=== PATIENT | female | born 1980 | race Asian ===

== ENCOUNTER 2017-03-23 11:41 | Emergency (ER) | payer BC, OTHER ==
[~2017-03-23] VITALS: Ht 157.5 cm; Wt 62.0 kg
[~2017-03-23 11:41] MED LIST: FERR1TAB23 PO; OMEG10007 PO; POLY150C4; PRENTAB26 PO
[2017-03-23 11:44] VITALS: TEMP 36.8; Ht 157.5 cm; Wt 62.0 kg
[2017-03-23 13:01] LABS: BASO % 0.6 %; BASO ABS # 0.04 K/uL (0-0.2); EOS % 2.3 %; EOS ABS # 0.15 K/uL (0-0.5); HEMATOCRIT 36.6 % (37-47); HEMOGLOBIN 12.5 g/dL (12.0-16.0); IG# 0.01 K/uL (0.00-0.02); LYMPH % 30.1 %; LYMPH ABS # 1.94 K/uL (1.2-3.4); MEAN CELL VOLUME 81.5 fL (80-100); MEAN CORPUSCULAR HEMOGLOBIN 27.8 pg (25-34); MEAN CORPUSCULAR HGB CONC 34.2 g/dl (32-36); MEAN PLATELET VOLUME 10.3 fL (7.4-10.4); MONO % 7.3 %; MONO ABS # 0.47 K/uL (0.11-0.59); NEUT % 59.5 %; NEUT ABS # 3.84 K/uL (1.4-6.5); PLATELET COUNT 317 K/uL (130-400); RED CELL DISTRIBUTION WIDTH CV 13.8 % (11.5-14.5); WHITE BLOOD COUNT 6.45 K/uL (4.8-10.8)
--- NOTE | 2017-03-23 13:11 | DIAGNOSTIC IMAGING REPORT ---
CHEST 2 VIEWS ROUTINE CLINICAL HISTORY: 37 years-old Female presenting with EVALUATE RESPIRATORY DISTRESS.DYSPNEA, shortness of breath, chest pain, cough for 2 months. TECHNIQUE: PA and lateral views of the chest were obtained. COMPARISON: None. FINDINGS: Cardiomediastinal silhouette normal. Lungs and pleural spaces clear. Osseous structures normal. Upper abdomen normal. IMPRESSION: 1. No acute cardiopulmonary disease. Electronically signed by: Dax Bermeo M.D. 03/23/2017 1:10 PM Dictated Date/Time: 03/23/2017 1:09 PM
[2017-03-23 13:20] LABS: ALBUMIN 3.6 gm/dl (3.4-5.0); ALT/SGPT 17 U/L (12-78); AST/SGOT 12 U/L (15-37); BLOOD UREA NITROGEN 10 mg/dl (7-18); CALCIUM 8.6 mg/dl (8.5-10.1); CARBON DIOXIDE 26 mmol/L (21-32); GLUCOSE 87 mg/dl (70-99); POTASSIUM 3.6 mmol/L (3.5-5.1); SODIUM 136 mmol/L (136-145)
[2017-03-23 13:25] LABS: ALKALINE PHOSPHATASE 88 U/L (45-117); CKMB 0.6 ng/ml (0.5-3.6); TOTAL PROTEIN 7.5 gm/dl (6.4-8.2)
[2017-03-23] MEDS ORDERED: CHLO1LIQ21 PO (13:43)
[2017-03-23 14:05] VITALS: BP 102/54; PULSE 72; O2SAT 98
--- NOTE | 2017-03-23 14:39 | EMERGENCY ROOM VISIT NOTE ---
History Report prepared by Erasmo: Praveen Aquino Under the Supervision of: Dr. Yousif Akers D.O. First contact with patient: 11:52 Chief Complaint: SHORTNESS OF BREATH Stated Complaint: DIFFICULTY BREATHING,LOTS OF CHEST PAIN Nursing Triage Summary: pt to the ED with worsening SOB and chest pain over the past several months, she was tx for bronchitis History of Present Illness The patient is a 37 year old female who presents to the Emergency Room with complaints of persistent shortness of breath since last night [employer]. She notes that last night she had severe shortness of breath and chest pain. She notes that she had similar shortness of breath two weeks ago. She notes the chest pain is associated with her coughing. She notes that she has been going through increased stress in her life due to work and family issues. She notes consistent difficulty sleeping at night. She has a recent history of bronchitis two months ago. She reports that her daughter goes to daycare and thinks she may have contracted something though she is unsure. She notes that she has seen her PCP twice in the last two months for similar symptoms. She notes that she did not have any tests done, though was prescribed antibiotics. She states that they seemed to help her cough, though the symptoms are recurring. She denies taking any daily medications. She notes ill-formed L4 vertebrae. She denies any underlying medical problems. She denies any leg pain, leg swelling, or recent travels. Source of History: patient Onset: last night [employer] Position: other (global ) Symptom Intensity: severe Quality: other (shortness of breath) Timing: other (persistent) Associated Symptoms: + cough, + chest pain Note: She notes increased stress and difficulty sleeping. She denies any leg pain, leg swelling, or recent travels. Review of Systems See HPI for pertinent positives & negatives. A total of 10 systems reviewed and were otherwise negative. Past Medical & Surgical Medical Problems: (1) Bronchitis (2) Normal labor (3) Vaginal bleeding Family History Hypertension Social History Smoking Status: Never Smoker Smokeless Tobacco Use: No Alcohol Use: none Drug Use: none Marital Status: Housing Status: lives with family Occupation Status: employed Current/Historical Medications Scheduled Chlorpheniramine-Dm (Robitussin Nighttime Coug 1-7.5 mg/5Ml), 20 ML PO UD Fish Oil ([place]ypress-3), 1 CAP PO QAM Multivit/Min/Iron/Fol Ac/Pren ( Vitamin), 1 TAB PO DAILY Allergies Coded Allergies: No Known Allergies (Unverified , 03/23/17) Physical Exam Vital Signs Date Time Temp Pulse Resp B/P (MAP) Pulse Ox O2 Delivery O2 Flow Rate FiO2 03/23/17 12:45 99 Room Air 03/23/17 11:44 36.8 105 18 105/57 98 Room Air Physical Exam CONSTITUTIONAL/VITAL SIGNS: Reviewed / noted above. GENERAL: Non-toxic in appearance. INTEGUMENTARY: Warm, dry, and [place]. HEAD: Normocephalic. EYES: without scleral icterus or trauma. ENT/OROPHARYNX: clear and moist. LYMPHADENOPATHY/NECK: Is supple without lymphadenopathy or meningismus. RESPIRATORY: Lungs clear and equal. CARDIOVASCULAR: Regular rate and rhythm. GI/ABDOMEN: Soft and nontender. No organomegaly or pulsatile mass. No rebound or guarding. Normal bowel sounds. EXTREMITIES: Warm and well perfused. BACK: No CVA tenderness. NEUROLOGICAL: Intact without focal deficits. PSYCHIATRIC: normal affect. MUSCULOSKELETAL: Normally developed with good muscle tone. Medical Decision & Procedures ER Provider Diagnostic Interpretation: Radiology results as stated below per my review and radiologist interpretation: CHEST 2 VIEWS ROUTINE CLINICAL HISTORY: 37 years-old Female presenting with EVALUATE RESPIRATORY DISTRESS.DYSPNEA, shortness of breath, chest pain, cough for 2 months. TECHNIQUE: PA and lateral views of the chest were obtained. COMPARISON: None. FINDINGS: Cardiomediastinal silhouette normal. Lungs and pleural spaces clear. Osseous structures normal. Upper abdomen normal. IMPRESSION: 1. No acute cardiopulmonary disease. Electronically signed by: Dax Bermeo M.D. 03/23/2017 1:10 PM Dictated Date/Time: 03/23/2017 1:09 PM Laboratory Results 03/23/17 12:45 Red Blood Count 4.49, Mean Corpuscular Volume 81.5, Mean Corpuscular Hemoglobin 27.8, Mean Corpuscular Hemoglobin Concent 34.2, Mean Platelet Volume 10.3, Neutrophils (%) (Auto) 59.5, Lymphocytes (%) (Auto) 30.1, Monocytes (%) (Auto) 7.3, Eosinophils (%) (Auto) 2.3, Basophils (%) (Auto) 0.6, Neutrophils # (Auto) 3.84, Lymphocytes # (Auto) 1.94, Monocytes # (Auto) 0.47, Eosinophils # (Auto) 0.15, Basophils # (Auto) 0.04 03/23/17 12:45 Test 03/23/17 12:45 White Blood Count 6.45 K/uL (4.8-10.8) Red Blood Count 4.49 M/uL (4.2-5.4) Hemoglobin 12.5 g/dL (12.0-16.0) Hematocrit 36.6 % (37-47) Mean Corpuscular Volume 81.5 fL (80-100) Mean Corpuscular Hemoglobin 27.8 pg (25-34) Mean Corpuscular Hemoglobin Concent 34.2 g/dl (32-36) Platelet Count 317 K/uL (130-400) Mean Platelet Volume 10.3 fL (7.4-10.4) Neutrophils (%) (Auto) 59.5 % Lymphocytes (%) (Auto) 30.1 % Monocytes (%) (Auto) 7.3 % Eosinophils (%) (Auto) 2.3 % Basophils (%) (Auto) 0.6 % Neutrophils # (Auto) 3.84 K/uL (1.4-6.5) Lymphocytes # (Auto) 1.94 K/uL (1.2-3.4) Monocytes # (Auto) 0.47 K/uL (0.11-0.59) Eosinophils # (Auto) 0.15 K/uL (0-0.5) Basophils # (Auto) 0.04 K/uL (0-0.2) RDW Standard Deviation 41.0 fL (36.4-46.3) RDW Coefficient of Variation 13.8 % (11.5-14.5) Immature Granulocyte % (Auto) 0.2 % Immature Granulocyte # (Auto) 0.01 K/uL (0.00-0.02) Anion Gap 5.0 mmol/L (3-11) Est Creatinine Clear Calc Drug Dose 96.2 ml/min Estimated GFR () 129.2 Estimated GFR (Non- 111.5 BUN/Creatinine Ratio 14.2 (10-20) Calcium Level 8.6 mg/dl (8.5-10.1) Total Bilirubin 0.4 mg/dl (0.2-1) Aspartate Amino Transf (AST/SGOT) 12 U/L (15-37) Alanine Aminotransferase (ALT/SGPT) 17 U/L (12-78) Alkaline Phosphatase 88 U/L (45-117) Total Creatine Kinase 63 U/L (26-192) Creatine Kinase MB 0.6 ng/ml (0.5-3.6) Creatine Kinase MB Ratio 1.0 (0-3.0) Troponin I < 0.015 ng/ml (0-0.045) Total Protein 7.5 gm/dl (6.4-8.2) Albumin 3.6 gm/dl (3.4-5.0) Globulin 3.9 gm/dl (2.5-4.0) Albumin/Globulin Ratio 0.9 (0.9-2) Laboratory results as stated above per my review. ECG Indication: SOB/dyspnea Rate (beats per minute): 70 Rhythm: normal sinus Findings: no acute ischemic change, no ectopy ED Course 1152: Previous medical records were reviewed. The patient was evaluated in room B6. A complete history and physical examination was performed. 1440: I reassessed the patient at this time. She is feeling better and resting comfortably. I discussed the results and treatment plan with the patient. I answered all pertaining questions that she had. She expressed understanding and verbalized agreement. The patient will be discharged home. Medical Decision Differentials considered include acute myocardial infarction, acute coronary syndrome, myocarditis, pericarditis, pericardial effusions /tamponade, esophageal perforation, pulmonary embolism, pneumonia, pneumothorax, cardiomyopathy, congestive heart, anemia, and COPD/asthma exacerbation. Is a 37-year-old female who presents to the ED with a chief complaint of discomfort and burning in her chest associated with some chest pain and shortness of breath. The patient reports having recurrent bronchitis. She states that she has been on 2 courses of antibiotics in the past 2 months. She states that her last course was in mid February. The patient states that she has a recurrent cough. When she coughs it cisneros in the chest. Her physical exam was unremarkable. Vital signs are stable. She is afebrile. She is not hypoxic. An EKG shows a normal sinus rhythm. Chest x-ray did not show acute process. CBC is normal as is his complete metabolic panel and troponin. The patient was told the results of the tests. She is felt to be stable for discharge and outpatient follow-up. Medication Reconcilliation Current Medication List: was personally reviewed by me Blood Pressure Screening Patient's blood pressure: Normal blood pressure Impression Primary Impression: Acute bronchitis Scribe Attestation The scribe's documentation has been prepared under my direction and personally reviewed by me in its entirety. I confirm that the note above accurately reflects all work, treatment, procedures, and medical decision making performed by me. Departure Information Dispostion Home / Self-Care Referrals Deedee Troncoso M.D. (PCP) Forms HOME CARE DOCUMENTATION FORM, IMPORTANT VISIT INFORMATION Patient Instructions Bronchitis Acute, My [facility] Additional Instructions Follow-up with your doctor for further care and evaluation in 1-2 days. Return to the emergency department for worsening or new symptoms or any concerns. You have been examined and treated today on an emergency basis only. This is not a substitute for, or an effort to provide, complete comprehensive medical care. It is impossible to recognize and treat all injuries or illnesses in a single emergency department visit. It is therefore important that you follow up closely with your doctor. Call as soon as possible for an appointment.
== END 2017-03-23 15:07 | disposition home or self-care (01) ==
LOC: C.EDB 11:42
DX: J20.9 Acute bronchitis, unspecified (principal); Z82.49 Family history of ischemic heart disease and other diseases of the circulatory system